=== PATIENT | female | born 1995 | race Caucasian/White ===

== ENCOUNTER 2020-06-07 10:15 | Inpatient (IN) | payer BC, OTHER ==
[2020-06-07 13:48] VITALS: BMI 45.8
[2020-06-07] MEDS: ELECTROLYTE-148 SOLN 1,000 ML IV SCH (14:00)
[2020-06-07 16:37] LABS: RETICULOCYTES 1.99 % (0.5-1.5)
[2020-06-07 16:48] LABS: BASO % 0.4 % (0-2.0); EOS % 0.2 % (0-4.5); HEMATOCRIT 34.2 % (32.4-45.2); HEMOGLOBIN 10.8 GM/dL (10.7-15.3); LYMPH % 19.5 % (8-40); MCHC 31.5 g/dl (32.0-36.0); MEAN CELL VOLUME 79.3 fl (80-96); MEAN PLT VOLUME 9.8 fl (7.5-11.1); MONO % 7.4 % (3.8-10.2); NEUT % 72.5 % (42.8-82.8); PLATELET COUNT 320 K/MM3 (134-434); RBC 4.31 M/mm3 (3.60-5.2); RDW 15.8 % (11.6-15.6); WHITE BLOOD COUNT 11.8 K/mm3 (4.0-10.0)
[2020-06-07 16:49] LABS: INR 0.89 (0.83-1.09); PROTHROMBIN TIME (PATIENT) 10.5 SEC (9.7-13.0)
[2020-06-07 16:51] LABS: BLOOD UREA NITROGEN 12.3 mg/dL (7-18); CALCIUM 9.1 mg/dL (8.5-10.1); CREATININE 0.7 mg/dL (0.55-1.3); POTASSIUM 4.3 mmol/L (3.5-5.1); URIC ACID 4.5 mg/dL (2.6-7.2)
[2020-06-07 16:52] LABS: ACTIVATED PTT 25.5 SECONDS (25.2-36.5)
--- NOTE | 2020-06-07 16:57 | HP ---
Past Medical History - Primary Care Physician PCP:: Tonja Riley - Admission Chief Complaint: 24yo P 0010 @ 39wks with preeclampsia, no ALLISON, no visual changes, no swelling of hands or face, no ctxns, no VB, no LOF, +FM History of Present Illness: 1. Preeclampsia - for IOL 2. Obesity - EFW 2964gm - 05/29/20 3. GBS - pos for Ampicillin in active labor History Source: Patient, Medical Record Limitations to Obtaining History: No Limitations - Past Medical History ...: 2 ...Para: 0 ...Term: 0 ...: 0 ...Spon : 0 ...Induced : 1 (ETOP x 1) ...Living Children: 0 ...Multiple Gestation: 0 ...LMP: 09/08/19 ... Weeks Gestation by Dates: 39.0 ...EDC by Dates: 06/14/20 ...EDC by Sono: 06/14/20 - Past Surgical History Past Surgical History: Yes: None Hx Myomectomy: No Hx Transabdominal Cerclage: No - Smoking History Smoking history: Never smoked Have you smoked in the past 12 months: No - Alcohol/Substance Use Hx Alcohol Use: No History of Substance Use: reports: None - Social History ADL: Independent Occupation: Teacher History of Recent Travel: No Home Medications - Allergies Allergies/Adverse Reactions: Allergies Allergy/AdvReac Type Severity Reaction Status Date / Time No Known Allergies Allergy Verified 06/05/20 15:17 - Home Medications Home Medications: Ambulatory Orders Pnv No.95/Ferrous Fum/Folic AC [ Vitamin Tablet] 1 each PO DAILY 06/08/20 Review of Systems - Review of Systems Constitutional: reports: No Symptoms Eyes: reports: No Symptoms HENT: reports: No Symptoms Neck: reports: No Symptoms Cardiovascular: reports: No Symptoms Respiratory: reports: No Symptoms Gastrointestinal: reports: No Symptoms Genitourinary: reports: No Symptoms Breasts: reports: No Symptoms Reported Musculoskeletal: reports: No Symptoms Integumentary: reports: No Symptoms Neurological: reports: No Symptoms Endocrine: reports: No Symptoms Hematology/Lymphatic: reports: No Symptoms Psychiatric: reports: No Symptoms Physical Exam - Maternity Vital Signs: Vital Signs Temperature 98.4 F 06/07/20 12:15 Pulse Rate 91 H 06/07/20 12:15 Respiratory Rate 18 06/07/20 12:15 Blood Pressure 146/89 06/07/20 12:15 O2 Sat by Pulse Oximetry (%) Constitutional: Yes: Well Nourished, No Distress, Calm Eyes: Yes: WNL, Conjunctiva Clear HENT: Yes: WNL, Atraumatic Neck: Yes: WNL, Supple, Trachea Midline Cardiovascular: Yes: WNL, Regular Rate and Rhythm Lungs: Clear to auscultation Breast(s): Yes: WNL - Abdominal Exam/OB Number of Fetuses: Single Presentation: Vertex Contractions: No Monitor Mode: External Heart Rate (range): 120 Heart Rate Location: Midline Category: I Accelerations: Uniform Decelerations: None - Vaginal Exam/OB Vaginal Bleeding: No Speculum Exam: No Dilatation (cm): 1 Effacement (%): 50 Amniotic Membrane Status: Intact Presentation: Vertex/Position Station: -3 - Physical Exam Musculoskeletal: Yes: WNL Extremities: Yes: WNL Integumentary: Yes: WNL ...Motor Strength: WNL Psychiatric: Yes: WNL, Alert, Oriented - Labs Lab Results: CBC, BMP 06/07/20 15:30 06/07/20 15:30 Assessment/Plan 24yo P0 @39wks with mild Preeclampsia, unfavorable cervix, and reassuring FHR we had a long descussion about preeclampsia and recommendation to induce labor since cervix is unfavorable will procede with Cervidil induction r/b/a of expectant managment, vs. Induction, vs. Elective c/section Patient chose to proceed with IOL - process discussed in detail will continue monitoring BP and FHR
[2020-06-07] MEDS ORDERED: BUTORPHANOL TARTRATE 1 MG/ML VIAL IVPUSH ONE (17:00)
[2020-06-07] MEDS ORDERED: AMPICILLIN - 2 GM in SODIUM CHLORIDE 100 ML IVPB ONE (17:00)
[2020-06-07] MEDS ORDERED: PROMETHAZINE HCL 25 MG/1 ML VIAL IVPUSH ONE (17:00)
[2020-06-07] MEDS ORDERED: DINOPROSTONE 10 MG VAGINAL SUPPOSITORY VG ONE (18:00)
[2020-06-08] MEDS: MISOPROSTOL 100 MCG TABLET PV SCH ×2 (12:00→18:01)
--- NOTE | 2020-06-08 12:16 | PN ---
Progress Note, Labor Vaginal Exam #1 Labor Exam Date: 06/08/20 Labor Exam Time: 12:00 Heart Rate (range): 140 Dilatation: 1-2 Effacement (%): long Amniotic Membrane Status: Intact Presentation: Vertex/Position Station: -3 Remarks: Minimal progress with Cervidil Desires to continue with IOL MF Status reassuring no s/s of PEC, repeat labs will proceed with Cytotec 25mcg
[2020-06-08 13:56] LABS: BASO % 0.5 % (0-2.0); EOS % 0.1 % (0-4.5); HEMATOCRIT 35.7 % (32.4-45.2); HEMOGLOBIN 11.4 GM/dL (10.7-15.3); MCH 25.4 pg (25.7-33.7); MEAN CELL VOLUME 79.3 fl (80-96); MEAN PLT VOLUME 10.3 fl (7.5-11.1); MONO % 5.9 % (3.8-10.2); NEUT % 79.5 % (42.8-82.8); PLATELET COUNT 325 K/MM3 (134-434); RDW 15.9 % (11.6-15.6); WHITE BLOOD COUNT 11.7 K/mm3 (4.0-10.0)
[2020-06-08] MEDS: ELECTROLYTE-148 SOLN 1,000 ML IV SCH (14:00)
[2020-06-08 14:30] LABS: BLOOD UREA NITROGEN 8.5 mg/dL (7-18); CALCIUM 9.3 mg/dL (8.5-10.1); CREATININE 0.8 mg/dL (0.55-1.3); POTASSIUM 4.6 mmol/L (3.5-5.1); URIC ACID 5.8 mg/dL (2.6-7.2)
[2020-06-08] MEDS ORDERED: BUTORPHANOL TARTRATE 2 MG/ML VIAL ONE (17:41)
[2020-06-08] MEDS ORDERED: OXYTOCIN 30 UNITS in 0.9% NS 30 UNIT/500 ML INFUS.BAG IVPB ONE (17:41)
[2020-06-08] MEDS ORDERED: PROMETHAZINE HCL 25 MG/1 ML VIAL ONE (17:41)
--- NOTE | 2020-06-08 17:44 | PN ---
Progress Note, Labor Vaginal Exam #2 Labor Exam Date: 06/08/20 Labor Exam Time: 17:30 Heart Rate (range): 140 Category 1 Dilatation: 2-3 Effacement (%): 50 Amniotic Membrane Status: Intact Presentation: Vertex/Position Station: -3 Remarks: Cervical balloon placed, inflated to 80cc NS Patient tolerated procedure well MF Status reassuring Stadol/Phenergan will administer Start Pitocin @ 1mU/min Discussed advantages of vs. c/section Agrees with continuing MUNDO, since EFW - ~7lb
[2020-06-08] MEDS ORDERED: OXYTOCIN 30 UNITS in 0.9% NS 30 UNIT/500 ML INFUS.BAG IVPB SCH (17:45)
[2020-06-08] MEDS ORDERED: AMPICILLIN SODIUM 2 GM VIAL ONE (19:55)
[2020-06-09] MEDS ORDERED: PCA PUMP NR ONE ×2 (00:25→10:55)
[2020-06-09] MEDS ORDERED: FENTANYL/BUPIVACAINE/NS/PF - PCEA - 50 ML DISP.SYRIN EP ONE ×3 (00:26→06:20)
[2020-06-09] MEDS ORDERED: LIDO 2%/EPI 1:200000 PRESRVFRE (20 ML SDVIAL) ONE (00:28)
[2020-06-09] MEDS: AMPICILLIN - 1 GM in SODIUM CHLORIDE 100 ML IVPB SCH ×6 (00:30→07:55)
[2020-06-09] MEDS ORDERED: NALOXONE HCL 0.4 MG/ML VIAL IVPUSH PRN (00:35)
[2020-06-09] MEDS ORDERED: FENTANYL/BUPIVACAINE/NS/PF - PCEA - 50 ML DISP.SYRIN EP SCH (00:45)
[2020-06-09] MEDS ORDERED: AMPICILLIN SODIUM 1 GM VIAL ONE ×3 (01:15→07:33)
[2020-06-09] MEDS: MISOPROSTOL 100 MCG TABLET PV SCH (07:29)
[2020-06-09] MEDS ORDERED: OXYTOCIN 20 UNITS in 0.9% NS 20 UNIT/1,000 ML INFUS.BAG IV ONE (08:19)
--- NOTE | 2020-06-09 09:36 | PN ---
Delivery - Delivery Vaginal Delivery: No Problems Type of Anesthesia: Epidural Episiotomy/Laceration: None EBL (cc): 200 Delivery, Single - Stages of Labor Date 1st Stage Initiatied: 06/08/20 Time 1st Stage Initiated: 20:00 Date 2nd Stage Initiated: 06/09/20 Time 2nd Stage Initiated: 08:30 Date of Delivery: 06/09/20 Time of Delivery: 09:13 Date Placenta Delivered: 06/09/20 Time Placenta Delivered: 09:19 Placenta: Yes: Spontaneous - Condition of Infant Certified Histologic Technician/Applied Psychology Chair Present: No Gender: Female Position: Left, OA - 1 Minute Total Score: 9 5 Minutes Total Score: 9 - [facility] Feeding Plan Initial Plan: Elected not to breastfeed exclusively throughout hospitalization Remarks - Remarks Remarks: Uncomplicated delivery of Head and shoulders
[2020-06-09] MEDS ORDERED: METHYLERGONOVINE MALEATE 0.2 MG/1 ML AMP IM PRN (09:37)
[2020-06-09] MEDS ORDERED: BISACODYL 10 MG SUPP.RECT RC PRN (09:37)
[2020-06-09] MEDS ORDERED: IBUPROFEN 600 MG TABLET (FP) PO PRN (09:37)
[2020-06-09] MEDS ORDERED: BENZOCAINE 28 GM HEMORRHOIDAL OINTMENT TP PRN (09:37)
[2020-06-09] MEDS ORDERED: ACETAMINOPHEN 325 MG TABLET (FP) PO PRN (09:37)
[2020-06-09] MEDS ORDERED: WITCH HAZEL 50% (TUCKS) 40 PAD/JAR PAD TP PRN (09:37)
[2020-06-09] MEDS ORDERED: BENZOCAINE 20% 57 GM BOTTLE TP PRN (09:37)
[2020-06-09] MEDS ORDERED: D5W-LR W/ 20 UNITS OXYTOCIN 20 UNIT/1,000 ML INFUS.BAG IV SCH (09:45)
[2020-06-09 09:48] LABS: CORD BASE EXCESS -7.8 mmol/L (0-2); CORD PCO2 48.6 mmHg (30-78); CORD pH 7.232 (7.14-7.44)
[2020-06-09 09:52] LABS: CORD BASE EXCESS -6.8 mmol/L (0-2); CORD HCO3 18.8 mmHg (20-29); CORD PCO2 38.3 mmHg (30-78); CORD pH 7.309 (7.14-7.44)
[2020-06-09] MEDS: FERROUS SO4 325 MG TABLET (FP) PO SCH ×2 (18:03)
[2020-06-09] MEDS: PRENATAL VITAMINS W/ FOLIC ACID TABLET (FP) PO SCH (18:04)
--- NOTE | 2020-06-10 08:05 | PN ---
Post Progress Note - Subjective Subjective: Patient without acute complaints. Reports tolerating oral intake without nausea or vomiting. Ambulating without dizziness. Denies fevers or chills. Pain well controlled with oral pain medication. without difficulty. Post Day: 1 Type of Delivery: Vital Signs: Vital Signs Temperature 98.1 F 06/10/20 06:00 Pulse Rate 72 06/10/20 06:00 Respiratory Rate 18 06/10/20 06:00 Blood Pressure 112/72 06/10/20 06:00 O2 Sat by Pulse Oximetry (%) 100 06/09/20 11:00 Breast Exam: Yes: Soft Uterus: Yes: Fundus Firm Abdomen/GI: Yes: Abdomen soft, Passing flatus, Tolerating PO Lochia: Yes: Rubra Lochia, amount: Moderate Extremities: Yes: Calves non-tender Perineum: Yes: Intact Activity: Ambulating - Labs Labs: CBC WBC 11.7 K/mm3 (4.0-10.0) H 06/08/20 13:25 RBC 4.50 M/mm3 (3.60-5.2) 06/08/20 13:25 Hgb 11.4 GM/dL (10.7-15.3) 06/08/20 13:25 Hct 35.7 % (32.4-45.2) 06/08/20 13:25 MCV 79.3 fl (80-96) L 06/08/20 13:25 MCH 25.4 pg (25.7-33.7) L 06/08/20 13:25 MCHC 32.0 g/dl (32.0-36.0) 06/08/20 13:25 RDW 15.9 % (11.6-15.6) H 06/08/20 13:25 Plt Count 323 K/MM3 (134-434) 06/08/20 13:25 Plt Count 325 K/MM3 (134-434) 06/08/20 13:25 MPV 10.3 fl (7.5-11.1) 06/08/20 13:25 Absolute Neuts (auto) 9.3 K/mm3 (1.5-8.0) H 06/08/20 13:25 Neutrophils % 79.5 % (42.8-82.8) 06/08/20 13:25 Lymphocytes % 14.0 % (8-40) D 06/08/20 13:25 Monocytes % 5.9 % (3.8-10.2) 06/08/20 13:25 Eosinophils % 0.1 % (0-4.5) 06/08/20 13:25 Basophils % 0.5 % (0-2.0) 06/08/20 13:25 Nucleated RBC % 0 % (0-0) 06/08/20 13:25 Retic Count 1.99 % (0.5-1.5) H 06/07/20 15:30 Haptoglobin 129 mg/dL (33-278) 06/07/20 15:30 Assessment/Plan 24yo P1 PPD #1 s/p VSS, Afebrile, doing well H/H stable Rhpos no need for RhoGam Cont. routine PP care, Plan to D/C in am
[2020-06-10 08:32] LABS: BASO % 0.3 % (0-2.0); EOS % 0.7 % (0-4.5); HEMATOCRIT 29.4 % (32.4-45.2); HEMOGLOBIN 9.2 GM/dL (10.7-15.3); LYMPH % 21.8 % (8-40); MCHC 31.5 g/dl (32.0-36.0); MEAN CELL VOLUME 79.4 fl (80-96); MEAN PLT VOLUME 9.6 fl (7.5-11.1); MONO % 6.8 % (3.8-10.2); NEUT % 70.4 % (42.8-82.8); PLATELET COUNT 250 K/MM3 (134-434); RDW 15.7 % (11.6-15.6); WHITE BLOOD COUNT 16.5 K/mm3 (4.0-10.0)
[2020-06-10 08:44] LABS: POC NITRAZINE POS
[2020-06-10] MEDS: FERROUS SO4 325 MG TABLET (FP) PO SCH ×2 (09:12→17:45)
[2020-06-10] MEDS: PRENATAL VITAMINS W/ FOLIC ACID TABLET (FP) PO SCH (09:12)
[2020-06-10] MEDS ORDERED: SENNOSIDES/DOCUSATE COMBO (SENNA PLUS) TABLET (UD) PO PRN (22:00)
--- NOTE | 2020-06-11 06:57 | DS ---
Physical Exam-CLAIM SPECIALIST Vital Signs: Vital Signs Temperature 97.7 F 06/10/20 22:00 Pulse Rate 86 06/10/20 22:00 Respiratory Rate 18 06/10/20 22:00 Blood Pressure 134/80 06/10/20 22:00 O2 Sat by Pulse Oximetry (%) 98 06/10/20 16:08 Constitutional: Yes: Well Nourished, No Distress, Calm Eyes: Yes: WNL HENT: Yes: WNL Neck: Yes: WNL, Supple, Trachea Midline Cardiovascular: Yes: WNL, Regular Rate and Rhythm Respiratory: Yes: WNL, Regular, CTA Bilaterally Gastrointestinal: Yes: WNL External Genitalia: Yes: Normal ....Post : Yes: Uterus firm, Uterus non-tender Breast(s): Yes: WNL Musculoskeletal: Yes: WNL Extremities: Yes: WNL Integumentary: Yes: WNL Neurological: Yes: WNL, Alert, Oriented ...Motor Strength: WNL Psychiatric: Yes: WNL, Alert, Oriented Labs: CBC, BMP 06/10/20 08:07 06/08/20 13:25 Delivery - Delivery Vaginal Delivery: No Problems Type of Anesthesia: Epidural Episiotomy/Laceration: None EBL (cc): 200 Delivery, Single - Stages of Labor Date 1st Stage Initiatied: 06/08/20 Time 1st Stage Initiated: 20:00 Date 2nd Stage Initiated: 06/09/20 Time 2nd Stage Initiated: 08:30 Date of Delivery: 06/09/20 Time of Delivery: 09:13 Time Placenta Delivered: 09:19 Placenta: Yes: Spontaneous - Condition of Senior Animator/Polygraph Technician Present: No Gender: Female Weight: 6 lb 10 oz Position: Left, OA Total Hours ROM (Hrs/Mins): 12 hours 49 minutes - 1 Minute Total Score: 9 5 Minutes Total Score: 9 - [facility] Feeding Plan Initial Plan: Elected not to breastfeed exclusively throughout hospitalization Discharge Summary Problems reviewed: Yes Reason For Visit: INDUCTION OF LABOR Procedures: Principal: Normal vaginal [facility] Course: Unremarkable Condition: Good - Instructions Diet, Activity, Other Instructions: Physical activity Resume your normal everyday activity as tolerated no heavy lifting or exercise until seen by your surgeon. You may walk unlimited ayesha of and climb stairs. You may resume driving the car when you feel safe and comfortable behind the wheel. No sexual activity as instructed. Wound care If you have a bandage, leave it on, and keep dry for 48-72 hours. After that time discard the outer bandage. If they are tapes on the skin under the out of bandage leave them in place. They will peel off in the next 7 to 10 days. Do Not Peel them off. You may shower the day after surgery. If there are tapes present on the skin, you may shower over them. Diet There are no dietary restrictions. Eat healthy, high-fiber foods. Drink 6 to 8 glasses of liquid each day. This will assist in keeping your bowels are regular. Pain management You may take Tylenol or acetaminophen or Ibuprofen (for example, Motrin, Advil etc.) from my pain prescription medication is ordered should be taken as prescribed for moderate to severe pain. Call MD for any of the following: Severe pain not relieved by medication Fever of 101 or higher Excessive bleeding or drainage on dressing Inability to urinate Referrals: Cezar Amin MD [Staff Physician] - Disposition: HOME - Home Medications Comprehensive Discharge Medication List: Ambulatory Orders Pnv No.95/Ferrous Fum/Folic AC [ Vitamin Tablet] 1 each PO DAILY 06/08/20
[2020-06-11] MEDS: PRENATAL VITAMINS W/ FOLIC ACID TABLET (FP) PO SCH (10:14)
[2020-06-11] MEDS: FERROUS SO4 325 MG TABLET (FP) PO SCH (10:14)
[2020-06-11 12:46] VITALS: BP 121/78; PULSE 90; TEMP 98.2
== END 2020-06-11 12:00 | disposition home or self-care (01) | DRG 807 ==
LOC: JDEL 10:15 → JLDR 12:15 → J3W 06-09 12:00
PROVIDERS: ADMIT Obstetrics & Gynecology; ATTEND Obstetrics & Gynecology
PROC: 3E0P7VZ Introduction of Hormone into Female Reproductive, Via Natural or Artificial Opening (ICD-10-PCS; principal; 2020-06-07)
PROC: 0U7C7ZZ Dilation of Cervix, Via Natural or Artificial Opening (ICD-10-PCS; 2020-06-08)
PROC: 10E0XZZ Delivery of Products of Conception, External Approach (ICD-10-PCS; 2020-06-09)
DX: O14.94 Unspecified pre-eclampsia, complicating childbirth (principal); Z37.0 Single live birth; Z3A.39 39 weeks gestation of pregnancy; O99.214 Obesity complicating childbirth; E66.1 Drug-induced obesity
CPT/HCPCS: 36415; 36600; 59409; 80048; 82803; 82977; 83010; 83986-QW; 84156; 84450; 84460; 84550; 85025; 85032; 85045; 85610; 85730; 86780; 86850; 86900; 86901; U0003

== ENCOUNTER 2020-07-31 23:03 | Emergency (ER) | payer BC, OTHER ==
[2020-07-31 23:10] VITALS: BP 146/79; PULSE 109; TEMP 98.3; BMI 42.5
--- NOTE | 2020-07-31 23:20 | PDOC ---
*Physical Exam - Vital Signs Last Vital Signs Temp Pulse Resp BP Pulse Ox 98.3 F 109 H 18 146/79 98 07/31/20 23:07 07/31/20 23:07 07/31/20 23:07 07/31/20 23:07 07/31/20 23:07 ED Treatment Course - LABORATORY CBC & Chemistry Diagram: 07/31/20 23:49 07/31/20 23:49 Medical Decision Making - Medical Decision Making 07/31/20 23:20 Patient seen by the advanced practice provider under my supervision. Ancillary testing reviewed as necessary. I agree with plan as outlined by the advanced practice provider. Discharge - Discharge Information Problems reviewed: Yes Clinical Impression/Diagnosis: UTI (urinary tract infection) Qualifiers: Urinary tract infection type: acute cystitis Hematuria presence: without hematuria Qualified Code(s): N30.00 - Acute cystitis without hematuria Condition: Stable Disposition: HOME - Additional Discharge Information Prescriptions: Sulfamethoxazole/Trimethoprim [Bactrim Ds -] 1 tab PO BID #14 tablet Cephalexin [Keflex] 500 mg PO BID 7 Days #14 capsule - Follow up/Referral Referrals: ON STAFF,NOT [Primary Care Provider] - - Patient Discharge Instructions Patient Printed Discharge Instructions: DI for Urinary Tract Infection (UTI) - Post Discharge Activity
--- OUTSIDE RECORDS SUMMARY | 2020-07-31 23:24 | XMS ---
:1995 [facility] Support Name Relationship Address Phone UE Unavailable Unavailable Unavailable [employer] MOTHER [address] [place] [address] [employer] Mother [address] [place] [address] Re-disclosure Warning The records that you are about to access may contain information from federally- assisted alcohol or drug abuse programs. If such information is present, then the following federally mandated warning applies: This information has been disclosed to you from records protected by federal confidentiality rules (42 CFR part 2). The federal rules prohibit you from making any further disclosure of this information unless further disclosure is expressly permitted by the written consent of the person to whom it pertains or as otherwise permitted by 42 CFR part 2. A general authorization for the release of medical or other information is NOT sufficient for this purpose. The Federal rules restrict any use of the information to criminally investigate or prosecute any alcohol or drug abuse patient.The records that you are about to access may contain highly sensitive health information, the redisclosure of which is protected by Article 27-F of the [facility] Public Health law. If you continue you may haveaccess to information: Regarding HIV / AIDS; Provided by facilities licensed or operated by the [facility] Office of Mental Health; or Provided by the [facility] Office for People With Developmental Disabilities. If such information is present, then the following [facility] mandated warning applies: This information has been disclosed to you from confidential records which are protected by state law. State law prohibits you from making any further disclosure of this information without the specific written consent of the person to whom it pertains, or as otherwise permitted by law. Any unauthorized further disclosure in violation of state law may result in a fine or intermediate sentence or both. A general authorization for the release of medical or other information is NOT sufficient authorization for further disclosure. Insurance Providers Payer name Policy type / Policy ID Covered Covered constitution party's Policy Plan Coverage type constitution party ID relationship to [employer] Information geronimo BC PPO [id number] SP [id number] GHI CBP [id number] SP [id number] 1 PPO [id number] Results ID Date Data Source [id number] 06/07/2020 11:00:00 AM EDT [facility] Name Value Range Interpretation Description Data Sup porting Code Source(s) Document(s ) SARS [facility] coronavirus 2 RNA This lab was ordered by [facility] and reported by [facility]. Procedure
[2020-07-31] MEDS ORDERED: KETOROLAC TROMETHAMINE 30 MG/1 ML VIAL IM ONE (23:31)
--- NOTE | 2020-07-31 23:34 | PDOC ---
History of Present Illness - General Chief Complaint: Pain Stated Complaint: URINARY PROBLEM Time Seen by Provider: 07/31/20 23:15 History Source: Patient Exam Limitations: No Limitations - History of Present Illness Initial Comments: 07/31/20 23:31 25-year-old female no significant past medical history presenting to the ED with urinary frequency dysuria flank pain as well as lower abdominal pain. Patient was seen and evaluated at [facility] a few days ago and told she had a UTI. Patient was placed on Macrobid which she states she has been taking. Patient presents the ED today for worsening pain in her flank as well as lower abdominal pain without associated nausea vomiting or diarrhea. Pt otherwise denies: fevers, chills, syncope, lightheadedness, dizziness, headaches, neck pain, chest pain, shortness of breath, palpitations, back pain, nausea, vomiting, diarrhea, constipation. Past History - Medical History Allergies/Adverse Reactions: Allergies Allergy/AdvReac Type Severity Reaction Status Date / Time No Known Allergies Allergy Verified 07/31/20 23:09 Home Medications: Ambulatory Orders Pnv No.95/Ferrous Fum/Folic AC [ Vitamin Tablet] 1 each PO DAILY 06/08/20 Ibuprofen [Motrin -] 600 mg PO QID #28 tablet 06/11/20 Sulfamethoxazole/Trimethoprim [Bactrim Ds -] 1 tab PO BID #14 tablet 08/01/20 Asthma: No Cancer: No Cardiac Disorders: No COPD: No Diabetes: No HTN: Yes (gestational) Seizures: No Thyroid Disease: No - Reproductive History Is Patient Now?: No - Psycho-Social/Smoking History Smoking History: Never smoked Have you smoked in the past 12 months: No - Substance Abuse Hx (Audit-C & DAST Scrn) How often the patient has a drink containing alcohol: Never Score: In Men: 4 or > Positive; In Women: 3 or > Positive: 0 Screen Result (Pos requires Nsg. Audit-10AR): Negative In the last yr the pt used illegal drug/Rx for NonMed reason: No Score: Yes response is considered Positive: 0 Screen Result (Positive result requires Nsg. DAST-10): Negative *Physical Exam - Vital Signs Last Vital Signs Temp Pulse Resp BP Pulse Ox 98.3 F 109 H 18 146/79 98 07/31/20 23:07 07/31/20 23:07 07/31/20 23:07 07/31/20 23:07 07/31/20 23:07 - Physical Exam 07/31/20 23:32 Gen: AAOx 3, no acute distress, comfortable, no signs of respiratory distress HENT: atraumatic, normocephalic with no laceration or contusion. Nasal mucosa without erythema. Oropharynx without erythema or exudates. Mucous membranes moist. EYES: PERRL, EOM intact, conjunctiva pink NECK: supple; trachea midline; no JVD, no lymphadenopathy, or thyromegaly CV: RRR no murmurs, gallops, or rubs. CHEST: CTA b/l no wheezing, rales or rhonchi ABD: +BS/ND. TTP to lower abdomen without rebound or guarding; rest of abdomen soft, no rebound, no guarding negative CVAT bilaterally EXTREMITY: no cyanosis or erythema. 2+ dorsalis pedis, posterior tibial, and radial pulse. No pedal edema; no calf swelling or tenderness SKIN: no rash, warm and dry, no diaphoresis HEME: no purpura or ecchymosis NEURO: normal speech, CN II-XII intact, sensation intact, normal gait, no cerebellar deficits MS: 5/5 strength in all extremities, FROM intact in all extremities. ED Treatment Course - LABORATORY CBC & Chemistry Diagram: 07/31/20 23:49 07/31/20 23:49 - RADIOLOGY Radiology Studies Ordered: Category Date Time Status KIDNEY / RENAL US [US] Stat Ultrasound 07/31/20 23:30 Ordered TRANSVAGINAL ULTRASOUND US [US] Stat Ultrasound 07/31/20 23:30 Ordered Medical Decision Making - Medical Decision Making 07/31/20 23:33 25-year-old female with urinary complaints flank pain and lower abdominal pain Vital signs stable except for tachycardia to 109 Will obtain labs UA UC U renal and transvaginal ultrasounds Will administer Toradol for symptomatic relief Will reassess based on White blood cell count 12.1 H&H 11.5 and 36.2 Chemistry within normal limits Renal ultrasound shows kidneys appear normal without mass hydronephrosis or obvious calculi Transvaginal ultrasound shows a 1.8 cm slightly complex left ovarian cyst Right ovary appears normal Repeat HR 90 UA Positive nitrites 2+ leuks Significant for UTI We will change patient's antibiotics to Bactrim twice daily for 7 days Pt appears well and is safe and stable for discharge with strict return precautions including signs and symptoms requiring immediate return to the ED Supportive care instructions explained and given to pt. Reasons to return emergently to ER explained and given. Importance of follow up with PMD and other specialists as indicated stressed to pt. Pt verbalized understanding of instructions. Pt to follow up with PMD in 2 days. 08/01/20 01:34 Discharge - Discharge Information Problems reviewed: Yes Clinical Impression/Diagnosis: UTI (urinary tract infection) Qualifiers: Urinary tract infection type: acute cystitis Hematuria presence: without hematuria Qualified Code(s): N30.00 - Acute cystitis without hematuria Condition: Stable Disposition: HOME - Additional Discharge Information Prescriptions: Sulfamethoxazole/Trimethoprim [Bactrim Ds -] 1 tab PO BID #14 tablet - Follow up/Referral Referrals: ON STAFF,NOT [Primary Care Provider] - - Patient Discharge Instructions Patient Printed Discharge Instructions: DI for Urinary Tract Infection (UTI) - Post Discharge Activity
[2020-08-01 00:16] LABS: BASO % 0.5 % (0-2.0); EOS % 0.6 % (0-4.5); HEMATOCRIT 36.2 % (32.4-45.2); HEMOGLOBIN 11.5 GM/dL (10.7-15.3); LYMPH % 21.8 % (8-40); MCHC 31.9 g/dl (32.0-36.0); MEAN CELL VOLUME 81.3 fl (80-96); MEAN PLT VOLUME 9.5 fl (7.5-11.1); MONO % 6.5 % (3.8-10.2); NEUT % 70.6 % (42.8-82.8); PLATELET COUNT 377 K/MM3 (134-434); RBC 4.45 M/mm3 (3.60-5.2); RDW 19.5 % (11.6-15.6); WHITE BLOOD COUNT 12.1 K/mm3 (4.0-10.0)
[2020-08-01 00:27] LABS: POTASSIUM 4.1 mmol/L (3.5-5.1)
[2020-08-01 00:29] LABS: ALBUMIN 3.4 g/dl (3.4-5.0); BLOOD UREA NITROGEN 11.6 mg/dL (7-18); CALCIUM 9.3 mg/dL (8.5-10.1)
[2020-08-01 00:33] LABS: CREATININE 0.8 mg/dL (0.55-1.3)
[2020-08-01 00:34] LABS: BILIRUBIN,TOTAL 0.4 mg/dL (0.2-1); TOT PROT 7.5 g/dl (6.4-8.2)
[2020-08-01 01:11] LABS: EPI CELLS 6 /uL (0-25.1); HYALINE CASTS 1 /uL (0-3.1); URINE APPEARANCE CLOUDY; URINE BILIRUBIN 3+ (NEGATIVE); URINE COLOR RED; URINE GLUCOSE (UA) NEGATIVE (NEGATIVE); URINE KETONE NEGATIVE (NEGATIVE); URINE LEUK ESTERASE 2+ (NEGATIVE); URINE NITRITE POSITIVE (NEGATIVE); URINE PROTEIN 1+ (NEGATIVE); URINE RBC 37 /uL (0-23.9); URINE WBC 1 /uL (0-25.8)
[2020-08-01] MEDS ORDERED: KETOROLAC TROMETHAMINE 30 MG/1 ML VIAL ONE (01:42)
[2020-08-01 06:20] LABS: URINE BACTERIA 47 /uL (0-1359)
== END 2020-08-01 01:48 | disposition home or self-care (01) ==
LOC: JER 23:03
PROC: 3E0233Z Introduction of Anti-inflammatory into Muscle, Percutaneous Approach (ICD-10-PCS; principal; 2020-07-31)
DX: N30.00 Acute cystitis without hematuria (principal)
CPT/HCPCS: 36415; 76775-TC; 76830-TC; 80053; 81003; 84703; 85025; 87086; 99285-25

== ENCOUNTER 2024-02-29 16:21 | Observation (INO) | payer BC, OTHER ==
[2024-02-29 18:11] LABS: BASO % 0.5 % (0-2.0); EOS % 0.4 % (0-4.5); HEMATOCRIT 31.2 % (32.4-45.2); HEMOGLOBIN 9.9 GM/dL (10.7-15.3); LYMPH % 24.7 % (8-40); MCH 23.4 pg (25.7-33.7); MCHC 31.7 g/dl (32.0-36.0); MEAN CELL VOLUME 73.8 fl (80-96); MEAN PLT VOLUME 9.1 fl (7.5-11.1); MONO % 7.4 % (3.8-10.2); PLATELET COUNT 399 10^3/uL (134-434); RBC 4.23 M/mm3 (3.60-5.2); RDW 17.3 % (11.6-15.6); WHITE BLOOD COUNT 10.5 K/mm3 (4.0-10.0)
[2024-02-29 18:36] LABS: POTASSIUM 4.3 mmol/L (3.5-5.1)
[2024-02-29 18:38] LABS: ALBUMIN 2.6 g/dl (3.4-5.0); CALCIUM 8.9 mg/dL (8.5-10.1)
[2024-02-29 18:39] LABS: BLOOD UREA NITROGEN 8.2 mg/dL (7-18)
[2024-02-29 18:41] LABS: CREATININE 0.6 mg/dL (0.55-1.3); URIC ACID 4.8 mg/dL (2.6-7.2)
[2024-02-29 18:42] LABS: EPI CELLS >36 /uL (0-25.1); HYALINE CASTS 3 /uL (0-3.1); URINE APPEARANCE CLEAR; URINE BACTERIA 1495 /uL (0-1359); URINE BILIRUBIN NEGATIVE (NEGATIVE); URINE COLOR YELLOW; URINE GLUCOSE (UA) NEGATIVE (NEGATIVE); URINE KETONE TRACE (NEGATIVE); URINE LEUK ESTERASE 1+ (NEGATIVE); URINE NITRITE NEGATIVE (NEGATIVE); URINE PROTEIN 1+ (NEGATIVE); URINE RBC 11 /uL (0-23.9); URINE WBC 27 /uL (0-25.8)
[2024-02-29 18:43] LABS: BILIRUBIN,TOTAL 0.4 mg/dL (0.2-1); TOT PROT 6.6 g/dl (6.4-8.2)
[2024-02-29 21:38] VITALS: BMI 49.4
[2024-02-29 22:24] LABS: INR 0.95 (0.83-1.09); PROTHROMBIN TIME (PATIENT) 10.7 SEC (9.7-13.0)
[2024-02-29] MEDS: ELECTROLYTE-148 SOLN 1,000 ML IV SCH (22:25)
[2024-02-29 22:27] LABS: ACTIVATED PTT 25.9 SECONDS (25.2-36.5)
[2024-03-01 06:46] LABS: BASO % 0.5 % (0-2.0); EOS % 0.4 % (0-4.5); HEMATOCRIT 28.9 % (32.4-45.2); HEMOGLOBIN 9.1 GM/dL (10.7-15.3); LYMPH % 29.3 % (8-40); MCH 23.5 pg (25.7-33.7); MCHC 31.6 g/dl (32.0-36.0); MEAN CELL VOLUME 74.4 fl (80-96); MONO % 7.4 % (3.8-10.2); NEUT % 62.4 % (42.8-82.8); PLATELET COUNT 328 10^3/uL (134-434); RBC 3.88 M/mm3 (3.60-5.2); RDW 17.1 % (11.6-15.6); WHITE BLOOD COUNT 9.8 K/mm3 (4.0-10.0)
[2024-03-01 07:03] VITALS: TEMP 98.2
[2024-03-01 07:07] LABS: POTASSIUM 4.3 mmol/L (3.5-5.1)
[2024-03-01 07:09] LABS: BLOOD UREA NITROGEN 7.3 mg/dL (7-18); CALCIUM 8.8 mg/dL (8.5-10.1)
[2024-03-01 07:10] LABS: ALBUMIN 2.3 g/dl (3.4-5.0)
[2024-03-01 07:12] LABS: CREATININE 0.7 mg/dL (0.55-1.3)
[2024-03-01 07:14] LABS: BILIRUBIN,TOTAL 0.5 mg/dL (0.2-1); TOT PROT 5.8 g/dl (6.4-8.2)
[2024-03-01 09:47] VITALS: RESP 17
[2024-03-01] MEDS: BUTORPHANOL TARTRATE 1 MG/ML VIAL IVPUSH ONE (10:27)
[2024-03-01] MEDS: PROMETHAZINE HCL 25 MG/1 ML VIAL IVPB ONE (10:28)
[2024-03-01 10:45] VITALS: BP 136/82; PULSE 129
== END 2024-03-01 10:51 | disposition home or self-care (01) ==
LOC: JDEL 16:21 → JLDR 20:55 → INTOOBSV 20:55 → UNDOADMOB 20:55 → JLDR 03-01 09:53
PROVIDERS: ADMIT Obstetrics & Gynecology; ATTEND Obstetrics & Gynecology
PROC: 4A1HXCZ Monitoring of Products of Conception, Cardiac Rate, External Approach (ICD-10-PCS; principal; 2024-03-01)
PROC: 3E0337Z Introduction of Electrolytic and Water Balance Substance into Peripheral Vein, Percutaneous Approach (ICD-10-PCS; 2024-03-01)
DX: O26.893 Other specified pregnancy related conditions, third trimester (principal); Z3A.38 38 weeks gestation of pregnancy; R10.9 Unspecified abdominal pain
CPT/HCPCS: 36415; 80053; 81003; 84550; 85025; 85610; 85730; 86780; 86850; 86900; 86901; G0378

== ENCOUNTER 2024-03-03 07:37 | Inpatient (IN) | payer BC, OTHER ==
[2024-03-03 08:57] VITALS: BMI 48.2
[2024-03-03] MEDS: ELECTROLYTE-148 SOLN 1,000 ML IV SCH (12:45)
[2024-03-03] MEDS: CITRIC ACID/SODIUM CITRATE 30 ML UNIT-DOSE CUP PO ONE (19:00)
[2024-03-03] MEDS ORDERED: morphine SULFATE/PF 1 MG/2 ML (2cc Syringe - QUVA) ONE (19:01)
[2024-03-03] MEDS ORDERED: FENTANYL CITRATE/PF 50 MCG/ML VIAL ONE (19:02)
[2024-03-03] MEDS ORDERED: ONDANSETRON 4 MG/2 ML VIAL ONE (19:04)
[2024-03-03] MEDS ORDERED: KETOROLAC TROMETHAMINE 30 MG/1 ML VIAL ONE (19:04)
[2024-03-03] MEDS ORDERED: SODIUM CHLORIDE 0.9% P/F 10 ML VIAL IJ ONE ×2 (19:04→19:10)
[2024-03-03] MEDS ORDERED: OXYTOCIN 10 UNITS/ML VIAL ONE (19:04)
[2024-03-03] MEDS ORDERED: DEXAMETHASONE SOD PHOSPHATE 4 MG/1 ML VIAL ONE (19:04)
[2024-03-03] MEDS ORDERED: ceFAZolin SODIUM 1 GM VIAL ONE (19:04)
[2024-03-03] MEDS ORDERED: METOCLOPRAMIDE HCL INJECTION 10 MG/2 ML VIAL ONE (19:04)
[2024-03-03 20:20] LABS: CORD HCO3 22.2 mmHg (20-29); CORD PCO2 46.8 mmHg (30-78); CORD pH 7.294 (7.14-7.44)
[2024-03-03 20:24] LABS: CORD BASE EXCESS -3.1 mmol/L (0-2); CORD HCO3 22.2 mmHg (20-29); CORD PCO2 40.7 mmHg (30-78); CORD pH 7.354 (7.14-7.44)
[2024-03-03] MEDS: OXYTOCIN 20 UNITS in 0.9% NS 20 UNIT/1,000 ML INFUS.BAG IV SCH (21:05)
[2024-03-03] MEDS ORDERED: OXYTOCIN 20 UNITS in 0.9% NS 20 UNIT/1,000 ML INFUS.BAG IV ONE (21:05)
[2024-03-03] MEDS ORDERED: METHYLERGONOVINE MALEATE 0.2 MG/1 ML AMP IM PRN (22:32)
[2024-03-03] MEDS ORDERED: WITCH HAZEL 50% (TUCKS) 40 PAD/JAR PAD TP PRN (22:42)
[2024-03-03] MEDS ORDERED: BENZOCAINE 28 GM HEMORRHOIDAL OINTMENT TP PRN (22:42)
[2024-03-03] MEDS ORDERED: BENZOCAINE 20% 57 GM BOTTLE TP PRN (22:42)
[2024-03-04 07:02] LABS: BASO % 0.2 % (0-2.0); HEMOGLOBIN 8.2 GM/dL (10.7-15.3); LYMPH % 9.1 % (8-40); MCH 23.4 pg (25.7-33.7); MCHC 31.4 g/dl (32.0-36.0); MEAN CELL VOLUME 74.5 fl (80-96); MONO % 3.2 % (3.8-10.2); NEUT % 87.5 % (42.8-82.8); PLATELET COUNT 315 10^3/uL (134-434); RBC 3.49 M/mm3 (3.60-5.2); WHITE BLOOD COUNT 15.8 K/mm3 (4.0-10.0)
[2024-03-04] MEDS: ACETAMINOPHEN 325 MG TABLET (FP) PO PRN (09:47)
[2024-03-04] MEDS: PRENATAL VITAMINS W/ FOLIC ACID TABLET (FP) PO SCH (09:48)
[2024-03-04] MEDS: ENOXAPARIN NA (PORCINE) 40 MG/0.4 ML DISP.SYRIN SQ SCH (09:48)
[2024-03-04] MEDS ORDERED: oxyCODONE HCL 5 MG TABLET PO PRN ×2 (10:32)
[2024-03-04] MEDS: IBUPROFEN 800 MG/8 ML IJ IVPB PRN (12:38)
[2024-03-04] MEDS: ELECTROLYTE-148 SOLN 1,000 ML IV SCH ×2 (19:18→19:19)
[2024-03-04] MEDS: SIMETHICONE 80 MG TAB.CHEW (FP) PO PRN (21:16)
[2024-03-04] MEDS: SENNOSIDES/DOCUSATE COMBO (SENNA PLUS) TABLET (UD) PO PRN (21:16)
[2024-03-04] MEDS: FERROUS SO4 325 MG TABLET (FP) PO SCH (21:16)
[2024-03-04] MEDS ORDERED: BISACODYL 10 MG SUPP.RECT RC PRN (22:32)
[2024-03-05] MEDS: IBUPROFEN 600 MG TABLET (FP) PO PRN (01:08)
[2024-03-05 10:41] VITALS: TEMP 98.1
[2024-03-05] MEDS: IBUPROFEN 600 MG TABLET (FP) PO SCH (11:35)
[2024-03-05] MEDS: ACETAMINOPHEN 325 MG TABLET (FP) PO PRN (14:21)
[2024-03-06 08:28] LABS: BASO % 0.6 % (0-2.0); EOS % 1.4 % (0-4.5); HEMATOCRIT 24.4 % (32.4-45.2); HEMOGLOBIN 7.6 GM/dL (10.7-15.3); LYMPH % 29.9 % (8-40); MCH 23.2 pg (25.7-33.7); MEAN CELL VOLUME 74.6 fl (80-96); MEAN PLT VOLUME 8.8 fl (7.5-11.1); MONO % 6.5 % (3.8-10.2); NEUT % 61.6 % (42.8-82.8); PLATELET COUNT 325 10^3/uL (134-434); RBC 3.27 M/mm3 (3.60-5.2); RDW 17.8 % (11.6-15.6)
[2024-03-06 12:14] VITALS: BP 131/84; PULSE 73; RESP 17
== END 2024-03-06 14:35 | disposition home or self-care (01) | DRG 788 ==
LOC: JLDR 07:37 → J3W 23:48
PROVIDERS: ADMIT Obstetrics & Gynecology; ATTEND Obstetrics & Gynecology
PROC: 10D00Z1 Extraction of Products of Conception, Low, Open Approach (ICD-10-PCS; principal; 2024-03-03)
DX: O13.4 Gestational [pregnancy-induced] hypertension without significant proteinuria, complicating childbirth (principal); O33.5XX0 Maternal care for disproportion due to unusually large fetus, not applicable or unspecified; O99.214 Obesity complicating childbirth; E66.01 Morbid (severe) obesity due to excess calories; Z3A.39 39 weeks gestation of pregnancy; Z37.0 Single live birth
CPT/HCPCS: 36415; 36600; 82803; 85025; 86850; 86900; 86901; 88307-TC; 93005; 93010